=== PATIENT | female | born 1965 | race Two or more races ===

== ENCOUNTER → 2016-10-15 | Outpatient (CLI) | payer OTHER | END | disposition disaster alternative care site (69) | LOC: GRAD 07:24 | DX: M25.562 Pain in left knee (principal); M17.12 Unilateral primary osteoarthritis, left knee; M23.207 Derangement of unspecified meniscus due to old tear or injury, left knee ==

== ENCOUNTER → 2016-11-01 | Outpatient (CLI) | payer OTHER | END | disposition disaster alternative care site (69) | LOC: GRAD 09:40 | DX: Z01.810 Encounter for preprocedural cardiovascular examination (principal) ==

== ENCOUNTER → 2016-12-04 | Outpatient (CLI) | payer OTHER | END | disposition disaster alternative care site (69) | LOC: GRAD 08:55 | DX: R10.9 Unspecified abdominal pain (principal); D25.9 Leiomyoma of uterus, unspecified ==